=== PATIENT | male | born 1990 | race Caucasian/White ===

== ENCOUNTER 2019-01-04 23:32 | Emergency (ER) | payer SELFPAY ==
[~2019-01-04 23:32] MED LIST: NO HOME MEDICATIONS
[2019-01-04 23:38] VITALS: BP 115/86; TEMP 97.5
[2019-01-05 04:25] VITALS: PULSE 72
== END 2019-01-05 04:25 | disposition home or self-care (01) ==
LOC: COL.ER 23:32
DX: F10.129 Alcohol abuse with intoxication, unspecified (principal); Y90.8 Blood alcohol level of 240 mg/100 ml or more
CPT/HCPCS: J2405; J7030

== ENCOUNTER 2019-05-02 02:33 | Emergency (ER) | payer SELFPAY ==
[~2019-05-02] VITALS: Ht 160 cm; Wt 68.2 kg
[2019-05-02 03:10] LABS: CALCIUM 8.5 mg/dL (8.4-10.2); CREATININE, serum 0.74 (0.66-1.25); POTASSIUM 3.5 mmol/L (3.4-5.0)
[2019-05-02 03:26] LABS: BASO # 0.1 (0.0-0.2); EOS % 0.4 % (0-4.0); GRAN # 4.9 (1.4-6.5); GRAN % 62.2 % (42.2-75.2); HEMATOCRIT 44.6 % (42.0-52.0); HEMOGLOBIN 14.4 g/dl (13.5-18.0); LYMPH # 2.4 (1.2-3.4); LYMPH % 30.4 % (20.0-51.0); MEAN CELL VOLUME 93 fl (80.0-100.0); MEAN CORPUSCULAR HEMOGLOBIN 30 pg (27.0-31.0); MEAN CORPUSCULAR HGB CONC 32 g/dl (33.0-37.0); MEAN PLATELET VOLUME 10.3 fl (7.4-10.4); MONO # 0.4 (0.1-0.6); MONO % 5.5 % (1.7-9.3); PLATELET COUNT 234 K/mm3 (130-400); RED BLOOD COUNT 4.79 M/mm3 (4.20-5.60); REDCELL DISTRIBUTION WIDTH-CV 12.8 % (11.5-14.5)
[2019-05-02 03:28] LABS: INR 0.9 (0.8-3.0); PROTHROMBIN TIME 10.7 SECONDS (9.7-12.8)
[2019-05-02 03:30] LABS: PARTIAL THROMBOPLASTIN TIME 28.6 SECONDS (26.0-37.0)
[2019-05-02 03:45] VITALS: BP 110/76; PULSE 99; TEMP 97.3
== END 2019-05-02 04:05 | disposition short-term general hospital (02) ==
LOC: COL.ER 02:33
PROVIDERS: Emergency Medicine
DX: S02.119A Unspecified fracture of occiput, initial encounter for closed fracture (principal); S06.6X9A Traumatic subarachnoid hemorrhage with loss of consciousness of unspecified duration, initial encounter; F10.129 Alcohol abuse with intoxication, unspecified; Z23 Encounter for immunization; R40.2412 Glasgow coma scale score 13-15, at arrival to emergency department; W19.XXXA Unspecified fall, initial encounter; Y92.511 Restaurant or cafe as the place of occurrence of the external cause
CPT/HCPCS: J1953; J2405; J7030

== ENCOUNTER 2019-06-07 02:24 | Emergency (ER) | payer SELFPAY ==
[~2019-06-07] VITALS: Ht 165.1 cm; Wt 72.7 kg
[2019-06-07 02:27] VITALS: TEMP 98
[2019-06-07 03:30] LABS: BASO # 0.1 (0.0-0.2); BASO % 0.6 % (0.0-2.0); EOS # 0.1 (0.0-0.7); EOS % 0.6 % (0-4.0); GRAN # 5.3 (1.4-6.5); GRAN % 62.9 % (42.2-75.2); HEMATOCRIT 41.9 % (42.0-52.0); HEMOGLOBIN 13.8 g/dl (13.5-18.0); LYMPH # 2.4 (1.2-3.4); MEAN CELL VOLUME 91 fl (80.0-100.0); MEAN CORPUSCULAR HEMOGLOBIN 30 pg (27.0-31.0); MEAN CORPUSCULAR HGB CONC 33 g/dl (33.0-37.0); MEAN PLATELET VOLUME 11.3 fl (7.4-10.4); MONO # 0.6 (0.1-0.6); MONO % 6.7 % (1.7-9.3); PLATELET COUNT 202 K/mm3 (130-400); RED BLOOD COUNT 4.62 M/mm3 (4.20-5.60); REDCELL DISTRIBUTION WIDTH-CV 12.1 % (11.5-14.5)
[2019-06-07 03:42] LABS: ALANINE AMINOTRANSFERASE 19 U/L (21-72); ALBUMIN 4.3 gm/dL (3.5-5.0); ALKALINE PHOSPHATASE 65 U/L (50-136); ANION GAP 14 mmol/L (7-16); AST,SGOT 19 U/L (15-37); BILIRUBIN,TOTAL 0.1 mg/dL (0.0-1.0); BLOOD UREA NITROGEN 9 mg/dL (9-20); CALCIUM 8.2 mg/dL (8.4-10.2); CARBON DIOXIDE 23 mmol/L (22-30); CHLORIDE 112 mmol/L (98-107); CREATININE, serum 0.64 (0.66-1.25); GLUCOSE 102 mg/dL (74-106); POTASSIUM 3.2 mmol/L (3.4-5.0); SODIUM 149 mmol/L (137-145); TOTAL PROTEIN 6.8 gm/dL (6.4-8.2)
[2019-06-07 03:43] LABS: ACETAMINOPHEN < 10 ug/mL (10-30); SALICYLATE < 1.0 mg/dL
[2019-06-07 03:52] LABS: ALCOHOL(ethanol),MEDICAL 409 mg/dL
[2019-06-07 04:28] LABS: TRICYCLIC ANTIDEPRESS URINE NEGATIVE
[2019-06-07 08:27] VITALS: BP 109/78; PULSE 92
== END 2019-06-07 09:07 | disposition home or self-care (01) ==
LOC: COL.ER 02:24
PROVIDERS: Emergency Medicine
DX: S00.83XA Contusion of other part of head, initial encounter (principal); F10.129 Alcohol abuse with intoxication, unspecified; X58.XXXA Exposure to other specified factors, initial encounter; Y90.8 Blood alcohol level of 240 mg/100 ml or more
CPT/HCPCS: J7030

== ENCOUNTER 2023-01-28 14:48 | Emergency (ER) | payer SELFPAY ==
[~2023-01-28] VITALS: Ht 167.6 cm; Wt 72.7 kg
[2023-01-28 15:10] VITALS: TEMP 98.8
[2023-01-28] MEDS ORDERED: MOTRIN 800800 MG/TAB PO (18:24)
[2023-01-28] MEDS ORDERED: PERCOCET 325 MG1 TA2 PO (18:24)
[2023-01-28] MEDS ORDERED: FLEXERIL 1010 MG/TAB PO (18:24)
[2023-01-28 18:41] VITALS: BP 145/100; PULSE 99
[2023-01-28] MEDS ORDERED: ZOFRAN ODT4 MG PO (19:07)
== END 2023-01-28 18:41 | disposition home or self-care (01) ==
LOC: COL.ER 14:48
DX: M54.16 Radiculopathy, lumbar region (principal)
CPT/HCPCS: J2270

== ENCOUNTER → 2023-05-17 | Outpatient (CLI) | payer SELFPAY ==
[~2023-05-17] MED LIST changes: +FLEXERIL 1010 MG/TAB PO; +MOTRIN 800800 MG/TAB PO; +PERCOCET 325 MG1 TA2 PO; +ZOFRAN ODT4 MG PO
== END ==
LOC: COL.RAD 08:45
DX: M54.16 Radiculopathy, lumbar region (principal); M25.48 Effusion, other site

== ENCOUNTER → 2023-06-13 | Outpatient (CLI) | payer SELFPAY ==
[~2023-06-13] MED LIST changes: +CYANOCOBAL1000 MCG/M IM; +DUO-KAPS1 CAP PO; +FERROUS SU325 MG/TAB PO; +FOLIC ACID 11 MG/TA1 PO; +Gadoterate 15 ML VIAL IV ONE; +MAG-OX 400400 MG/TAB PO; +NATURE'S BLEND100 M2 PO; +NEURONTIN100 MG/CAP PO; +PROTONIX 40MG T40 MG PO; +VITAMIN B12 681 TAB PO
== END ==
LOC: COL.RAD 12:25
DX: R27.0 Ataxia, unspecified (principal)
CPT/HCPCS: A9575

== ENCOUNTER 2023-06-15 12:46 | Inpatient (IN) | payer SELFPAY ==
[2023-06-15] VITALS (365 sets, daily range): BP systolic 107–131; BP diastolic 44–81; PULSE 101–121; TEMP 98.2–99.3; O2SAT 70–100
[~2023-06-15] VITALS: Ht 167.6 cm; Wt 76.0 kg
[~2023-06-15 12:46] MED LIST changes: -CYANOCOBAL1000 MCG/M IM; -DUO-KAPS1 CAP PO; -FERROUS SU325 MG/TAB PO; -FOLIC ACID 11 MG/TA1 PO; -Gadoterate 15 ML VIAL IV ONE; -MAG-OX 400400 MG/TAB PO; -NATURE'S BLEND100 M2 PO; -NEURONTIN100 MG/CAP PO; -PROTONIX 40MG T40 MG PO; +Thiamine 100 MG TAB PO SCH; -VITAMIN B12 681 TAB PO
[2023-06-15] MEDS ORDERED: NS 500 ML IV ONE (13:15)
[2023-06-15 13:26] LABS: INR 1.2 (0.8-3.0); PROTHROMBIN TIME 12.8 SECONDS (9.7-12.8)
[2023-06-15 13:40] LABS: ALANINE AMINOTRANSFERASE 13 U/L (0-55); ALBUMIN 3.4 gm/dL (3.5-5.0); ALKALINE PHOSPHATASE 56 U/L (40-150); ANION GAP 16 mmol/L (7-16); AST,SGOT 20 U/L (5-34); BILIRUBIN,TOTAL 2.8 mg/dL (0.2-1.2); BLOOD UREA NITROGEN 9 mg/dL (9-21); CALCIUM 9.1 mg/dL (8.4-10.2); CARBON DIOXIDE 19 mmol/L (22-29); CHLORIDE 101 mmol/L (98-107); CREATININE, serum 0.69 mg/dL (0.72-1.25); GLUCOSE 186 mg/dL (70-99); POTASSIUM 3.2 mmol/L (3.5-4.5); SODIUM 136 mmol/L (136-145); TOTAL PROTEIN 5.7 gm/dL (6.2-8.1)
[2023-06-15 13:47] LABS: TROPONIN-I < 0.010 ng/mL (0.00-0.033)
[2023-06-15 13:50] LABS: EOS % 0.2 % (0.0-4.0); GRAN # 8.2 K/mm3 (1.4-6.5); GRAN % 84.3 % (42.2-75.2); LYMPH # 1.2 K/mm3 (1.2-3.4); LYMPH % 12.5 % (20.0-51.0); MEAN CELL VOLUME 116 fl (80.0-100.0); MEAN CORPUSCULAR HGB CONC 34 g/dl (33.0-37.0); MONO # 0.2 K/mm3 (0.1-0.6); MONO % 2.3 % (1.7-9.3); PLATELET COUNT 187 K/mm3 (130-400); RED BLOOD COUNT 0.64 M/mm3 (4.20-5.60); REDCELL DISTRIBUTION WIDTH-CV 18.4 % (11.5-14.5)
[2023-06-15 13:53] LABS: MEAN CORPUSCULAR HEMOGLOBIN 39 pg (27-31)
[2023-06-15 13:54] LABS: HEMATOCRIT 7.4 % (42.0-52.0); HEMOGLOBIN 2.5 g/dl (13.5-18.0)
[2023-06-15] MEDS ORDERED: Polyethylene Glycol 3350 17 GM PDS PO PRN (15:15)
[2023-06-15] MEDS ORDERED: Docusate Sodium 100 MG CAP PO PRN (15:15)
[2023-06-15] MEDS ORDERED: Ondansetron 4 MG/2 ML VIAL IV PRN (15:15)
[2023-06-15] MEDS ORDERED: Folic Acid 1 MG TAB PO SCH (15:22)
[2023-06-15] MEDS ORDERED: Mag/Al Hydrox/Simeth Susp 30 ML CUP PO PRN (15:30)
[2023-06-15] MEDS ORDERED: *Potassium Replacement Protocol MC SCH (15:30)
[2023-06-15] MEDS ORDERED: Potassium Bicarbonate/Citrate 20 MEQ Effervescent TAB PO SCH (15:30)
[2023-06-15] MEDS ORDERED: LORazepam 1 MG TAB PO PRN (15:30)
--- NOTE | 2023-06-15 15:45 | NUR ---
Arrived to the unit from the ER. Patient alert and oriented and in no obvious distress, although noted to be very pale. Was able to move himself over from the ER cot to ICU bed. Reports exertional dyspnea and endorses back pain with radiation to the legs. The shortness of breath and pain began prior to arrival to the hospital. VS stable. Assessment completed and call light left within reach.
[2023-06-15 16:03] LABS: IRON,SERUM 405 ug/dL (50-175)
[2023-06-15] MEDS ORDERED: Magnesium Oxide 400 MG TAB PO SCH (17:00)
[2023-06-15] MEDS ORDERED: Multivitamin TAB PO SCH (17:00)
[2023-06-15 18:21] LABS: HEMATOCRIT 12.6 % (42.0-52.0); HEMOGLOBIN 4.5 g/dl (13.5-18.0)
[2023-06-15] MEDS ORDERED: Iohexol 300 - 100 ML VIAL IV ONE (18:29)
[2023-06-15] MEDS ORDERED: NS 100 ML IV SCH (18:30)
--- NOTE | 2023-06-15 19:19 | NUR ---
PT IN BED, ALERT AND CALM. BILATERAL PERIPHERAL AC IV'S. BLOOD CURRENTLY INFUSING.
[2023-06-15 20:18] LABS: COLLECTION METHOD CLEAN CATCH
[2023-06-15 20:27] LABS: URINE APPEARANCE CLEAR (CLEAR/HAZY); URINE BLOOD NEGATIVE (NEGATIVE); URINE COLOR Dark Yellow (YELLOW); URINE GLUCOSE NEGATIVE (NEGATIVE); URINE KETONE 2+ (NEGATIVE); URINE NITRATE NEGATIVE (NEGATIVE); URINE PROTEIN(semi-quant) TRACE (NEGATIVE); URINE UROBILINOGEN >=8.0 E.U/dL (0.2-1.0)
[2023-06-15] MEDS ORDERED: Gabapentin 100 MG CAP PO SCH (21:00)
[2023-06-15 23:50] LABS: HEMATOCRIT 15.1 % (42.0-52.0); HEMOGLOBIN 5.5 g/dl (13.5-18.0)
[2023-06-16] VITALS (324 sets, daily range): BP systolic 117–131; BP diastolic 75–84; PULSE 69–108; TEMP 98.2–99.6; O2SAT 72–100
[2023-06-16 00:45] LABS: TRICYCLIC ANTIDEPRESS URINE NEGATIVE (NEGATIVE)
[2023-06-16 06:22] LABS: EOS % 0.3 % (0.0-4.0); GRAN # 5.2 K/mm3 (1.4-6.5); GRAN % 75.2 % (42.2-75.2); LYMPH # 1.5 K/mm3 (1.2-3.4); LYMPH % 21.4 % (20.0-51.0); MEAN CORPUSCULAR HGB CONC 36 g/dl (33.0-37.0); MEAN PLATELET VOLUME 9.5 fl (7.4-10.4); MONO # 0.2 K/mm3 (0.1-0.6); MONO % 2.2 % (1.7-9.3); PLATELET COUNT 119 K/mm3 (130-400); RED BLOOD COUNT 2.25 M/mm3 (4.20-5.60); REDCELL DISTRIBUTION WIDTH-CV 16.5 % (11.5-14.5)
[2023-06-16 06:23] LABS: HEMATOCRIT 20.5 % (42.0-52.0); HEMOGLOBIN 7.4 g/dl (13.5-18.0); MEAN CELL VOLUME 91 fl (80.0-100.0); MEAN CORPUSCULAR HEMOGLOBIN 33 pg (27-31)
[2023-06-16 06:49] LABS: ALBUMIN 3.2 gm/dL (3.5-5.0); BILIRUBIN,TOTAL 4.1 mg/dL (0.2-1.2); CALCIUM 8.6 mg/dL (8.4-10.2); CREATININE, serum 0.56 mg/dL (0.72-1.25); TOTAL PROTEIN 5.3 gm/dL (6.2-8.1)
--- NOTE | 2023-06-16 08:15 | NUR ---
Resting in bed; Alert and oriented and in no distress. Patient states he still have numbness and tingling in hands and feet, but otherwise states that he feels much better today. Patient appears less pale and ill looking this shift. VS stable. Call light left within reach.
[2023-06-16] MEDS ORDERED: Folic Acid 5 MG/ML 10 ML Multi-Dose VIAL IV ONE (09:45)
--- NOTE | 2023-06-16 11:52 | NUR ---
SW met with patient to complete intake and discuss discharge planning. Patient's mother (Marcy Hillman [phone]) was present and permitted by patient to remain in room during intake. Patient confirmed mother as NOK and emergency contact. Patient shared that he resides in his home with his girlfriend in [place]. Patient reports decline with ADLs and has some support with girlfriend with ADLs, currently no DMEs. Patient currently does not have a PCP but does utilize the [facility] for healthcare. Pharmacy of choice is [facility]. Patient has previously completed a FA application with [facility]- will forward referral for this visit. Patient is anticipating to be discharged back to his residence, pending further medical recommendations. Discharge plan: TBD
[2023-06-16 15:30] LABS: HEMATOCRIT 24.2 % (42.0-52.0); HEMOGLOBIN 8.7 g/dl (13.5-18.0)
[2023-06-16] MEDS ORDERED: Thiamine 100 MG TAB PO SCH (21:00)
[2023-06-16 23:37] LABS: HEMATOCRIT 23.3 % (42.0-52.0); HEMOGLOBIN 8.4 g/dl (13.5-18.0)
[2023-06-17] VITALS (158 sets, daily range): BP systolic 96–133; BP diastolic 71–89; PULSE 75–103; TEMP 97.9–99.1; O2SAT 61–100
[2023-06-17 06:15] LABS: MEAN CELL VOLUME 93 fl (80.0-100.0); MEAN CORPUSCULAR HGB CONC 37 g/dl (33.0-37.0); MEAN PLATELET VOLUME 10.3 fl (7.4-10.4); PLATELET COUNT 101 K/mm3 (130-400); RED BLOOD COUNT 2.24 M/mm3 (4.20-5.60); REDCELL DISTRIBUTION WIDTH-CV 16.6 % (11.5-14.5)
[2023-06-17 06:18] LABS: HEMATOCRIT 20.8 % (42.0-52.0); HEMOGLOBIN 7.7 g/dl (13.5-18.0); MEAN CORPUSCULAR HEMOGLOBIN 34 pg (27-31)
[2023-06-17 06:31] LABS: ALBUMIN 3.4 gm/dL (3.5-5.0); BILIRUBIN,TOTAL 2.2 mg/dL (0.2-1.2); CALCIUM 9.1 mg/dL (8.4-10.2); CREATININE, serum 0.63 mg/dL (0.72-1.25); POTASSIUM 3.9 mmol/L (3.5-4.5); TOTAL PROTEIN 5.5 gm/dL (6.2-8.1)
--- NOTE | 2023-06-17 07:00 | NUR ---
Pt alert and oriented this AM; had restful night and offers no complaints this AM. Pt's HGB 7.7 on AM labs; pt to receive 1 unit PRBCs when ready. Call light in reach.
[2023-06-17 07:01] LABS: ANISOCYTOSIS 1+; EOSINOPHIL 1 % (0-4); LYMPHOCYTE 39 % (20.0-51.0); NEUTROPHILS 58 % (42.0-75.2)
[2023-06-17 07:02] LABS: HYPOCHROMIA 1+; OVALOCYTES 1+; PLATELET ESTIMATE NORMAL (NORMAL)
[2023-06-17] MEDS ORDERED: Potassium Bicarbonate/Citrate 20 MEQ Effervescent TAB PO ONE (08:00)
--- NOTE | 2023-06-17 09:19 | NUR ---
Initial visit; Reggie is very friendly and likes to talk. He and Otolaryngology Nurse spoke of how he has gotten to the place where he is today. He spoke of his journey working ten hour days, not eating well, drinking too much and not having a life. Otolaryngology Nurse spoke with him about his health and asked what he has in mind for what his health care will entail. Reggie was receptive to Otolaryngology Nurse keeping him in her prayers and he will make sure he gets some answers as to what specifically his health problems are along with the blood issues he is already aware of. Reggie is [employer] and now aware of the visitation of our Armored Truck Driver on the weekend and Deacons throughout the week. Otolaryngology Nurse wished him well.
[2023-06-17 09:49] LABS: HEPATITIS B SURFACE ANTIGEN Negative (Negative)
[2023-06-17] MEDS ORDERED: Folic Acid 1 MG TAB PO ONE (10:00)
--- NOTE | 2023-06-17 10:11 | NUR ---
Unit of blood ready in blood bank; Dr. Perez does not want unit given at this time due to HGB being 7.7 on AM labs. Will recheck HBG at 1800 and re-evaluate need for blood transfusion. Pt updated and blood bank made aware.
[2023-06-17] MEDS ORDERED: [UNRECOGNIZED DRUG - OTHER] IV SCH (12:00)
[2023-06-17] MEDS ORDERED: THIAMINE IV SCH (12:00)
[2023-06-17] MEDS ORDERED: NS IV SCH (12:00)
--- NOTE | 2023-06-17 12:41 | NUR ---
Pt transfered to 350 at this time. Rodrigo RN unavailable at time of pt's transfer; CHELY VALDEZ assisted with settling pt in in room. Pt's cellphone and director mba with pt at time of transfer; no other belongings in previous room. Pt alert and oriented at time of transfer and has informed his family of his change in location. Call light in reach and bed alarm on. Fall precautions in place.
--- NOTE | 2023-06-17 12:44 | NUR ---
PT ARRIVED TO ROOM 350 FROM ICU. PT IS AXOX3. PT IS ON RA. PT IS ST ON TELE. PT ORIENTED TO ROOM AND FLOOR. PT IS IN FALL PRECAUTIONS. BEDALARM ACTIVE. PT GIVEN CALL LIGHT AND INSTRUCTED TO CALL WITH ALL NEEDS. BEDSIDE ASSESSING PT.
--- NOTE | 2023-06-17 13:21 | NUR ---
head worker was informed pt can transfer to the medical floor today. GANGA spoke with Shuttle Veneering Supervisor Luiza who reports pt's FAA is good until 09/21/23 under fabrizio approval. GANGA notes OT is pending and PT says home vs rehab- pt has no insurance. Discharge Plan: tbd
[2023-06-17] MEDS ORDERED: Ondansetron 4 MG/2 ML VIAL IV PRN (13:45)
--- NOTE | 2023-06-17 18:50 | NUR ---
PATIENT RESTING IN BED WITH TV OFF WITH NO FAMILY PRESENT WITH NO ACUTE DISTRESS NOTED. PATIENT ON ROOM AIR. INT TO RIGHT AND LEFT AC INTACT WITH NO COMPLICATIONS NOTED. TELEMETRY INTACT. PATIENT DENIES ANY NEEDS AT THIS TIME. PATIENT CARE ASSUMED FROM [facility] AT THIS TIME. BED IN LOW POSITION WITH WHEELS LOCKED WITH RAILS UP X3 AND CALL LIGHT WITHIN REACH. BED ALARM ON.
[2023-06-17 19:39] LABS: RETIC # 0.05 M/mm3 (0.02-0.16); RETIC % 1.7 % (0.5-3.52)
[2023-06-17 19:44] LABS: HEMATOCRIT 24.4 % (42.0-52.0); HEMOGLOBIN 8.5 g/dl (13.5-18.0)
--- NOTE | 2023-06-17 21:05 | NUR ---
PATIENT RESTING IN BED WITH TV ON WITH NO FAMILY PRESENT WITH NO ACUTE DISTRESS NOTED. PATIENT ON ROOM AIR. INT TO RIGHT AND LEFT AC INTACT WITH NO COMPLICATIONS NOTED. TELEMETRY INTACT. ASSESSMENT AND MEDICATION ADMINISTRATION COMPLETED AT THIS TIME. PATIENT TOLERATED WELL. PATIENT REQUESTED TO WALK IN ROOM AND PATIENT HELPED TO WALK. PATIENT DENIES ANY OTHER NEEDS. BED IN LOW POSITION WITH WHEELS LOCKED WITH RAILS UP X3 AND CALL LIGHT WITHIN REACH. BED ALARM ON.
--- NOTE | 2023-06-17 22:05 | NUR ---
PATIENT RESTING IN BED WITH TV ON WITH NO FAMILY PRESENT WITH NO ACUTE DISTRESS NOTED. PATIENT ON ROOM AIR. TELEMETRY INTACT. INT TO RIGHT AND LEFT AC INTACT WITH NO COMPLICATIONS NOTED. IV PIGGY BACK OF THAMINE GIVEN AT THIS TIME. PATIENT TOLERATING WELL. PATIENT GIVEN SNACK OF JELLO PER PATIENT AGREEMENT. PATIENT DENIES ANY OTHER NEEDS AT THIS TIME. BED IN LOW POSITION WITH WHEELS LOCKED WITH RAILS UP X3 AND CALL LIGHT WITHIN RECH. BED ALARM ON.
[2023-06-18] VITALS (12 sets, daily range): BP systolic 106–133; BP diastolic 70–80; PULSE 81–97; TEMP 97.9–98.5
--- NOTE | 2023-06-18 03:35 | NUR ---
HOSPITALIST CALLED FOR PATIENT C/O PAIN. TELEPHONE ORDER RECIEVED FOR GABAPINTIN 100 MG PO TIMES ONE.
[2023-06-18] MEDS ORDERED: Gabapentin 100 MG CAP PO ONE (03:45)
[2023-06-18 04:49] LABS: HEPATITIS AB (HAV) IGG INDEX 2.06 Index (<=1.00)
[2023-06-18] MEDS ORDERED: PHENYLEPHRINE RC PRN (05:45)
[2023-06-18] MEDS ORDERED: COCOA BUTTER RC PRN (05:45)
[2023-06-18 07:48] LABS: MEAN CELL VOLUME 93 fl (80.0-100.0); MEAN CORPUSCULAR HGB CONC 37 g/dl (33.0-37.0); MEAN PLATELET VOLUME 10.8 fl (7.4-10.4); PLATELET COUNT 102 K/mm3 (130-400); RED BLOOD COUNT 2.19 M/mm3 (4.20-5.60); REDCELL DISTRIBUTION WIDTH-CV 16.2 % (11.5-14.5)
[2023-06-18 07:52] LABS: HEMATOCRIT 20.4 % (42.0-52.0); HEMOGLOBIN 7.5 g/dl (13.5-18.0); MEAN CORPUSCULAR HEMOGLOBIN 34 pg (27-31)
[2023-06-18 07:55] LABS: ALANINE AMINOTRANSFERASE 11 U/L (0-55); ALBUMIN 3.3 gm/dL (3.5-5.0); ALKALINE PHOSPHATASE 48 U/L (40-150); ANION GAP 7 mmol/L (7-16); AST,SGOT 20 U/L (5-34); BILIRUBIN,TOTAL 1.3 mg/dL (0.2-1.2); BLOOD UREA NITROGEN < 5 mg/dL (9-21); CALCIUM 9.1 mg/dL (8.4-10.2); CARBON DIOXIDE 25 mmol/L (22-29); CHLORIDE 107 mmol/L (98-107); CREATININE, serum 0.68 mg/dL (0.72-1.25); GLUCOSE 107 mg/dL (70-99); MAGNESIUM 3.2 mg/dL (1.6-2.6); POTASSIUM 4.1 mmol/L (3.5-4.5); SODIUM 139 mmol/L (136-145); TOTAL PROTEIN 5.3 gm/dL (6.2-8.1)
[2023-06-18] MEDS ORDERED: Folic Acid 1 MG TAB PO SCH (09:00)
[2023-06-18 09:31] LABS: ANISOCYTOSIS 1+; PLATELET ESTIMATE DECREASED (NORMAL)
[2023-06-18 09:33] LABS: POLYCHROMASIA 2+
[2023-06-18] MEDS ORDERED: Lidocaine PF 2% (20 MG/ML) 5 ML VIAL ONE (11:44)
[2023-06-18] MEDS ORDERED: LR 1,000 ML IV SCH (12:00)
--- NOTE | 2023-06-18 12:21 | NUR ---
repack room worker attended interdisciplinary clinical rounding. Patient may be ready for discharge tomorrow depending on his scope results from today. Patient's preference is return home at time of discharge. Ehsan notes patient's PCP is the [facility] as patient does not have insurance. EHSAN contacted Luiza with financial counseling whom reports they have met with patient and completed a financial assistance application, they are verifying if he is eligible for Medicaid and if he would need to apply for this as well. Discharge plan: Home
[2023-06-18] MEDS ORDERED: Ferrous Sulfate 325 MG TAB PO SCH (14:19)
--- NOTE | 2023-06-18 23:24 | NUR ---
patient sitting up in bed, alert and oriented x4. pt denies chest pain and shortness of breath. no remarkable sking findings, small scattered bruising on extremities, slight edema to BLE noted. IVs in RAC and LAC are patent, sites are clean dry and intact. pt has no further needs, questins, or concerns at this time. fall precautions in place, call light within reach. will cotninue to monitor.
[2023-06-19 03:40] VITALS: BP 107/62; PULSE 95; TEMP 98.2
[2023-06-19 03:47] VITALS: BP_SYST 107
--- NOTE | 2023-06-19 06:50 | NUR ---
awake resting in bed, lab in to draw blood, bedside shift report received from LYNN Escoto
[2023-06-19 07:12] VITALS: BP 113/74; PULSE 78; TEMP 99.1
[2023-06-19 07:12] LABS: MEAN CORPUSCULAR HGB CONC 34 g/dl (33.0-37.0); MEAN PLATELET VOLUME 10.8 fl (7.4-10.4); PLATELET COUNT 79 K/mm3 (130-400); RED BLOOD COUNT 2.27 M/mm3 (4.20-5.60); REDCELL DISTRIBUTION WIDTH-CV 19.2 % (11.5-14.5)
[2023-06-19] MEDS ORDERED: FERROUS SU325 MG/TAB PO (07:25)
[2023-06-19 07:27] LABS: HEMATOCRIT 22.2 % (42.0-52.0); HEMOGLOBIN 7.5 g/dl (13.5-18.0); MEAN CELL VOLUME 98 fl (80.0-100.0); MEAN CORPUSCULAR HEMOGLOBIN 33 pg (27-31)
[2023-06-19 07:28] LABS: CALCIUM 8.9 mg/dL (8.4-10.2); CREATININE, serum 0.67 mg/dL (0.72-1.25); MAGNESIUM 2.2 mg/dL (1.6-2.6); POTASSIUM 4.2 mmol/L (3.5-4.5)
[2023-06-19 07:39] VITALS: BP_SYST 113
--- NOTE | 2023-06-19 08:12 | NUR ---
sitting up on side of be waiting for breakfast, full assessment completed, see interventions for further info, denies needs at this time
[2023-06-19 08:30] LABS: NEUTROPHILS 59 % (42.0-75.2)
[2023-06-19 08:31] LABS: LYMPHOCYTE 27 % (20.0-51.0); MYELOCYTE 4 % (0-0); NUCLEATED RED BLOOD CELL 4 (0-6)
[2023-06-19 08:33] LABS: PATHOLOGY DIFF REVIEW OK +
[2023-06-19] MEDS ORDERED: VITAMIN B12 681 TAB PO (08:34)
[2023-06-19] MEDS ORDERED: NEURONTIN100 MG/CAP PO (08:35)
[2023-06-19] MEDS ORDERED: PROTONIX 40MG T40 MG PO (08:35)
[2023-06-19] MEDS ORDERED: DUO-KAPS1 CAP PO (08:36)
[2023-06-19] MEDS ORDERED: FOLIC ACID 11 MG/TA1 PO (08:37)
[2023-06-19] MEDS ORDERED: NATURE'S BLEND100 M2 PO (08:37)
[2023-06-19] MEDS ORDERED: MAG-OX 400400 MG/TAB PO (08:38)
[2023-06-19] MEDS ORDERED: CYANOCOBAL1000 MCG/M IM (08:38)
--- NOTE | 2023-06-19 08:45 | NUR ---
Dr Perez in to see patient, will plan discharge later
[2023-06-19 09:54] LABS: ANISOCYTOSIS 2+; BAND 1 % (0-10); LYMPHOCYTE 36 % (20.0-51.0); METAMYELOCYTE 2 % (0-0); NEUTROPHILS 50 % (42.0-75.2); PLATELET ESTIMATE DECREASED (NORMAL); POLYCHROMASIA 1+
--- NOTE | 2023-06-19 10:30 | NUR ---
discharge instructions given to patient and his mother, reviewed all new medications with them, and informed them [facility] Clinic and GI office will call for follow up appointments, verbalizes understanding,
--- NOTE | 2023-06-19 10:38 | NUR ---
discharged per WC
--- NOTE | 2023-06-19 10:59 | NUR ---
Follow-up; Reggie doing well and thanked Loader Operator/Ground Leader for looking in on him this morning and is about to be discharged. Loader Operator/Ground Leader glad she saw him before he left. He says he will continue to take care of himself and will stop to say "Hello," when he comes to the hospital for check-ups.
--- NOTE | 2023-06-19 11:12 | NUR ---
milking worker attended interdisciplinary clinical rounding, patient is medically stable to return home today. Patient will have 4 days of B12 shots through the express unit then needs a lab follow up in 4 weeks at [facility]. GANGA faxed orders to express unit. GANGA scheduled appointments with Express Unit starting tomorrow through Saturday at 8 am. GANGA notified patient's nurse. Discharge plan: Home
== END 2023-06-19 10:38 | disposition home or self-care (01) | DRG 812 ==
LOC: COL.ER 12:46 → SURG 15:12 → ICU 15:12 → SURG 06-17 12:39
PROVIDERS: Internal Medicine; Internal Medicine Gastroenterology; Personal Emergency Response Attendant; ADMIT Internal Medicine
PROC: 30233N1 Transfusion of Nonautologous Red Blood Cells into Peripheral Vein, Percutaneous Approach (ICD-10-PCS; 2023-06-15)
PROC: 0DB78ZX Excision of Stomach, Pylorus, Via Natural or Artificial Opening Endoscopic, Diagnostic (ICD-10-PCS; 2023-06-18)
PROC: 0DB98ZX Excision of Duodenum, Via Natural or Artificial Opening Endoscopic, Diagnostic (ICD-10-PCS; principal; 2023-06-18 12:00)
DX: D64.9 Anemia, unspecified (principal); F12.90 Cannabis use, unspecified, uncomplicated; F10.10 Alcohol abuse, uncomplicated; E53.8 Deficiency of other specified B group vitamins; K70.10 Alcoholic hepatitis without ascites; G62.9 Polyneuropathy, unspecified; Z87.820 Personal history of traumatic brain injury
CPT/HCPCS: J2405; J2704; J3411; J3420; J7040; P9016; Q9967

== ENCOUNTER → 2023-07-17 | Outpatient (CLI) | payer SELFPAY ==
[~2023-07-17] MED LIST changes: +CYANOCOBAL1000 MCG/M IM; +DUO-KAPS1 CAP PO; +FERROUS SU325 MG/TAB PO; +FOLIC ACID 11 MG/TA1 PO; +MAG-OX 400400 MG/TAB PO; +NATURE'S BLEND100 M2 PO; +NEURONTIN100 MG/CAP PO; +PROTONIX 40MG T40 MG PO; -Thiamine 100 MG TAB PO SCH; +VITAMIN B12 681 TAB PO
[2023-07-17 10:29] LABS: HEMATOCRIT 39.9 % (42.0-52.0); HEMOGLOBIN 12.6 g/dl (13.5-18.0); MEAN CELL VOLUME 95 fl (80.0-100.0); MEAN CORPUSCULAR HEMOGLOBIN 30 pg (27-31); MEAN CORPUSCULAR HGB CONC 32 g/dl (33.0-37.0); MEAN PLATELET VOLUME 11.7 fl (7.4-10.4); PLATELET COUNT 225 K/mm3 (130-400); REDCELL DISTRIBUTION WIDTH-CV 12.6 % (11.5-14.5)
[2023-07-17 10:47] LABS: ALBUMIN 3.6 g/dL (3.5-5.0); BILIRUBIN,TOTAL 0.4 mg/dL (0.2-1.2); CALCIUM 9.2 mg/dL (8.4-10.2); CREATININE, serum 0.76 mg/dL (0.72-1.25); POTASSIUM 4.2 mEq/L (3.5-4.5); TOTAL PROTEIN 6.1 g/dl (6.2-8.1)
[2023-07-17 11:33] LABS: MAGNESIUM 1.9 mg/dL (1.6-2.6)
== END ==
LOC: COL.LAB 09:42
PROVIDERS: Internal Medicine
DX: D53.9 Nutritional anemia, unspecified (principal)